=== PATIENT | male | born 1970 | race Caucasian/White ===

== ENCOUNTER 2021-02-16 18:01 | Emergency (ER) | payer OTHER, SELFPAY ==
[2021-02-16 19:06] VITALS: BP 00/00; PULSE 0; RESP 0; TEMP -17.7; TEMP 0
== END 2021-02-16 19:07 | disposition left against medical advice (07) ==
LOC: UTC 18:04
PROVIDERS: Emergency Provider Nurse Practitioner; PCP Family Medicine Sports Medicine
DX: Z53.21 Procedure and treatment not carried out due to patient leaving prior to being seen by health care provider (principal)

== ENCOUNTER 2023-12-20 09:17 | Outpatient (CLI) | payer OTHER, SELFPAY ==
--- NOTE | 2023-12-20 10:39 | XR_ITS ---
FINAL REPORT CLINICAL HISTORY: RESPIRATORY DISORDER,BRONCHIECTASIS..soa FINDINGS: No acute pulmonary density is evident. There is no evidence of effusion or other pleural disease. The mediastinum has a normal appearance. The cardiac silhouette is unremarkable. IMPRESSION: Unremarkable chest exam. Reviewed, Interpreted and Dictated by Felicia Yang MD Transcribed by Katie Collins Authenticated and [facility]
[2023-12-20 10:40] VITALS: PULSE 72; PULSE 77
[2023-12-20] MEDS: ALBUTEROL 0.083% 2.5 MG/3 ML NEB IH (10:40)
== END 2023-12-20 23:59 | disposition home or self-care (01) ==
LOC: RT 09:18
PROVIDERS: Visit Provider Chiropractor
DX: J47.9 Bronchiectasis, uncomplicated (principal); J98.9 Respiratory disorder, unspecified
CPT/HCPCS: 71046; 94060; 94640; J7613